=== PATIENT | male | born 1945 | race Two or more races ===

== ENCOUNTER 2019-04-20 15:51 | Inpatient (IN) | payer OTHER ==
[~2019-04-20] VITALS: Ht 160 cm; Wt 54.4 kg
[2019-05-03] MEDS ORDERED: FINASTERIDE5 MG PO (08:53)
[2019-05-03] MEDS ORDERED: DOXAZOSIN MESYLA2 MG PO (08:53)
[2019-05-25] MEDS ORDERED: INTEGRA F CAPS1 EACH PO (16:10)
[2019-05-25] MEDS ORDERED: ULTRACET PO (16:11)
[2019-05-25] MEDS ORDERED: INTESTINEX680 M1 PO (16:11)
== END 2019-05-25 18:32 | disposition home or self-care (01) | DRG 327 ==
LOC: SURG 05-03 08:30 → ICU 05-06 06:50 → O/R 05-06 06:50 → SURG 05-06 08:30 → ICU 05-06 14:56 → SURH 05-18 14:59
PROVIDERS: Urology; ADMIT Surgery
PROC: 07TB0ZZ Resection of Mesenteric Lymphatic, Open Approach (ICD-10-PCS; 2019-05-06)
PROC: 4A033R1 Measurement of Arterial Saturation, Peripheral, Percutaneous Approach (ICD-10-PCS; 2019-05-06)
PROC: 0DB60ZZ Excision of Stomach, Open Approach (ICD-10-PCS; principal; 2019-05-06 14:15)
PROC: 0DTF0ZZ Resection of Right Large Intestine, Open Approach (ICD-10-PCS; 2019-05-06 14:15)
PROC: 3E0F7GC Introduction of Other Therapeutic Substance into Respiratory Tract, Via Natural or Artificial Opening (ICD-10-PCS; 2019-05-07)
PROC: 0DH67UZ Insertion of Feeding Device into Stomach, Via Natural or Artificial Opening (ICD-10-PCS; 2019-05-07)
PROC: 3E0G76Z Introduction of Nutritional Substance into Upper GI, Via Natural or Artificial Opening (ICD-10-PCS; 2019-05-07)
PROC: BW21Y0Z Computerized Tomography (CT Scan) of Abdomen and Pelvis using Other Contrast, Unenhanced and Enhanced (ICD-10-PCS; 2019-05-14)
PROC: 02HV33Z Insertion of Infusion Device into Superior Vena Cava, Percutaneous Approach (ICD-10-PCS; 2019-05-16)
PROC: 3E0336Z Introduction of Nutritional Substance into Peripheral Vein, Percutaneous Approach (ICD-10-PCS; 2019-05-16)
DX: C18.2 Malignant neoplasm of ascending colon (principal); J98.11 Atelectasis; J44.1 Chronic obstructive pulmonary disease with (acute) exacerbation; E44.0 Moderate protein-calorie malnutrition; K91.31 Postprocedural partial intestinal obstruction; R65.10 Systemic inflammatory response syndrome (SIRS) of non-infectious origin without acute organ dysfunction; N39.0 Urinary tract infection, site not specified; K31.7 Polyp of stomach and duodenum; D72.828 Other elevated white blood cell count; R59.0 Localized enlarged lymph nodes; R33.8 Other retention of urine; F17.298 Nicotine dependence, other tobacco product, with other nicotine-induced disorders; N40.1 Benign prostatic hyperplasia with lower urinary tract symptoms; K57.30 Diverticulosis of large intestine without perforation or abscess without bleeding; A49.01 Methicillin susceptible Staphylococcus aureus infection, unspecified site; M62.81 Muscle weakness (generalized)